=== PATIENT | male | born 1955 | race Caucasian/White ===

== ENCOUNTER 2023-12-02 07:08 | Emergency (ER) | payer OTHER, MEDICAID, SELFPAY ==
[2023-12-02 07:21] VITALS: BP 191/95; PULSE 88; RESP 18; TEMP 37; O2SAT 97; BMI 35.2
[2023-12-02 07:27] LABS: Appearance Urine Slightly Cloudy (Clear); Bilirubin Urine Negative (Negative); Blood Urine 2+ (Negative); Color Urine Light yellow (Yellow); Glucose Urine 3+ (Negative); Ketones Urine Negative (Negative); Leukocyte Esterase Urine 1+ (Negative); Nitrite Urine Positive (Negative); Protein Urine 1+ (Negative); Urobilinogen Urine 0.2 (0.2-1.0); pH Urine 6.5 (5.0-8.5)
[2023-12-02 07:36] LABS: Bacteria Urine Moderate; Squamous Epithelial Cell Urine Few (None-Few); WBC Urine 25-50 (0-5)
[2023-12-02] MEDS: lidocaine HCL 2 % JELLY (TOP) STERILE 6 ML TOPICAL (07:45)
--- NOTE | 2023-12-02 07:50 | ED.GENADULT ---
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 He has had less urine output than normal and he has had burning when he urinates. Apparently was seen in [place] headache catheter placed and removed yesterday. He was not put on antibiotics by his record patient is on blood thinner for paroxysmal atrial fibrillation is got a history of controlled type 2 diabetes he has got pleural fibrosis that is chronic in gout history of alcohol dependence and anxiety. His chart was reviewed from [facility] a he is on apixaban patient also reports he has had a bruise in his right anterior abdomen but does not remember trauma or injury. He has had no fever chills, chills, rigors. He has had difficulty urinating over at least 24 hours. Dysuria as well as mention. No chest pain, shortness of breath, neurologic complaint, skin rashes or nuchal rigidity. Related Data Previous Rx's Medication Instructions Recorded ciprofloxacin HCl 500 mg tablet 500 mg PO BID #14 tabs 12/02/23 (Cipro) Allergies Allergy/AdvReac Type Severity Reaction Status Date / Time No Known Drug Allergies Allergy Verified 12/02/23 07:34 Review of Systems Status of ROS: Reports: 6 or more systems reviewed and unremarkable except as noted in History and below PFSH PFS Social History Smoking Status: Never smoker Do you use any of these nicotine containing products: None How often do you have a drink containing alcohol: never AUDIT-C Alcohol total score: 0 Non-prescribed substance use: denies use service: No Exam Narrative: Exam Narrative: Objective: Vital signs show him to be afebrile, blood pressure is elevated Alert orient x3, pleasant man no distress HEENT is unremarkable neck is supple Chest clear Pulse regular Abdomen obese benign he has got a right-sided bruise over his right upper quadrant, but it is not tender no obvious hematoma. Seems to be more soft tissue just bruising. Looks like it is old as well as its color would indicate it has been few days. No suprapubic tenderness Eggs negative CVA tenderness Extremities are during edema neurologic grossly nonfocal upper lower extremities Const: Vital Signs, click to edit/add: Vital Signs - 24 hr 12/02/23 07:21 12/02/23 09:24 Temperature 98.6 F 98.4 F Pulse Rate [Pulse Oximeter] 88 80 Respiratory Rate 18 18 Blood Pressure [Ri ght Upper Arm] 191/95 H 149/86 H Pulse Oximetry 97 94 Oxygen Delivery Me thod Room Air Room Air Course Vital Signs Vital signs: Initial Vital Signs Temperature 98.6 F 12/02/23 07:21 Temperature Source Temporal Artery Scan 12/02/23 07:21 Pulse Rate 88 12/02/23 07:21 Pulse Rhythm Regular 12/02/23 07:21 Respiratory Rate 18 12/02/23 07:21 Blood Pressure 191/95 H 12/02/23 07:21 Blood Pressure Mean 127 H 12/02/23 07:21 Blood Pressure Position Supine 12/02/23 07:21 Pulse Oximetry 97 12/02/23 07:21 Oxygen Delivery Method Room Air 12/02/23 07:21 Vital Signs Temperature 98.6 F 12/02/23 07:21 Pulse Rate 88 12/02/23 07:21 Respiratory Rate 18 12/02/23 07:21 Blood Pressure 191/95 H 12/02/23 07:21 Pulse Oximetry 97 12/02/23 07:21 Oxygen Delivery Method Room Air 12/02/23 07:21 Temperature 98.4 F 12/02/23 09:24 Pulse Rate 80 12/02/23 09:24 Respiratory Rate 18 12/02/23 09:24 Blood Pressure 149/86 H 12/02/23 09:24 Pulse Oximetry 94 12/02/23 09:24 Oxygen Delivery Method Room Air 12/02/23 09:24 Medications Administered Medications: Discontinued Medications Generic Name Dose Route Start Last Admin Trade Name Freq PRN Reason Stop Dose Admin Sodium Chloride 500 mls @ 500 mls/hr 12/02/23 07:48 12/02/23 09:15 0.9 % Sodium Chloride 500 Ml IV 12/02/23 08:47 Infused .Q1H ONE Infusion Ceftriaxone Sodium 1 gm/ 100 mls @ 200 mls/hr 12/02/23 07:48 12/02/23 09:15 Sodium Chloride IVPB 12/02/23 07:49 Infused ONCE ONE Infusion Lidocaine HCl 6 ml 12/02/23 08:16 12/02/23 07:45 Lidocaine Hcl 2 % Jelly (Top) Sterile TOPICAL 12/02/23 08:17 6 ml ONCE ONE Administration Medical Decision Making MDM Narrative Medical decision making narrative: 67-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 The patient on his urinalysis looks like he has UTI. He will need his catheter replaced as he has 800+ mL of urine in his bladder and he has been unable to urinate. Will leave his catheter in, will give him IV Rocephin and treat him with Cipro at home 500 b.i.d. x7 days. He will need to follow up with primary care in 48 hours for reassessment, return to ED sooner problems concerns worsening. At this point I think he continue his same medications, and I will add the Cipro to his regimen as mention. He will leave with the catheter as well as leg bag. Addendum 8:50 a.m. the patient has urinary tract infection, his catheters in place, he will be discharged home on Cipro, his white count is normal, his electrolytes are still pending, but I think he can go home at this point Cipro and then recheck with regular doctor in a couple of days, decide about further antibiotic treatment and catheter continuation. Patient's blood sugar is elevated, likely due to his infection. I think that will improve once his infection is treated. He can monitor and use his insulin and adjust accordingly. Lab Data Labs: Lab Results 12/02/23 12/02/23 Range/Units 07:21 08:18 WBC 8.24 (4.50-11.00) K/uL RBC 5.24 (4.30-5.90) m/uL Hgb 14.8 (13.5-17.5) gm/dL Hct 43.4 (37.0-53.0) % MCV 83 (80-100) fL MCH 28 (26-34) pg MCHC 34 (32-36) gm/dL RDW Coeff of Maria [place] 13.1 (11.5-15.5) % Plt Count 209 (140-440) K/uL Neut % (Auto) 79.2 H (42.0-72.0) % Lymph % (Auto) 11.9 L (20-44) % [place] % (Auto) 6.3 (0.0-11.0) % Eos % (Auto) 1.7 (0.0-7.0) % Baso % (Auto) 0.5 (0.0-3.0) % Neut # (Auto) 6.50 (1.7-7.0) K/uL Lymph # (Auto) 1.00 (0.90-2.90) K/uL [place] # (Auto) 0.50 (0.00-0.90) K/UL Eos # (Auto) 0.14 (0.00-0.50) K/uL Baso # (Auto) 0.04 (0.00-0.30) K/uL Abs Immat Gran (auto) 0.03 (0.00-0.30) K/uL Imm/Tot Granulo (auto) 0.4 % Sodium 135 (135-149) mmol/L Potassium 4.3 (3.6-5.1) mmol/L Chloride 100 (96-114) mmol/L Carbon Dioxide 25 (20-32) mmol/L Anion Gap 10 (7-15) mEq/L BUN 15 (7-30) mg/dL Creatinine 0.6 (0.5-1.5) mg/dL Estimated Creat Clear 62.91 Estimated GFR 104 ml/min Glucose 321 H (60-115) mg/dL Calcium 9.4 (8.4-10.6) mg/dL C-Reactive Protein 2.9 H (0.5-1.0) mg/dL Urine Color Light yellow (Yellow) Urine Appearance Slightly Cloudy A (Clear) Urine pH 6.5 (5.0-8.5) Ur Specific [place] 1.010 (1.000-1.030) Urine Protein 1+ A (Negative) Urine Glucose (UA) 3+ A (Negative) Urine Ketones Negative (Negative) Urine Blood 2+ A (Negative) Urine Nitrite Positive A (Negative) Urine Bilirubin Negative (Negative) Urine Urobilinogen 0.2 (0.2-1.0) Ur Leukocyte Esterase 1+ A (Negative) Urine RBC 10-25 A (0-2) Urine WBC 25-50 A (0-5) Ur Squamous Epith Cells Few (None-Few) Urine Bacteria Moderate A (None) Discharge Plan Discharge Clinical Impression: Urinary tract infection, Acute urinary retention Patient Disposition: Home w/ Parent or Adult Condition: Improved Additional Instructions: Leave catheter in for the next 2 days, recommend recheck with your regular doctor in 2-3 days. They can reassess the need for continued catheter. Antibiotics will be given to you for an infection in your urine. Continue home medications, return to the ED if there is problems or concerns. Deje el cat?ter colocado faith los pr?ximos 2 d?as. Se recomienda volver a consultar con marrufo m?dico habitual en 2-3 d?as. Pueden reevaluar la necesidad de continuar con el cat?ter. Le ally?n antibi?ticos por juan infecci?n en la orina. Contin?e con los medicamentos en el hogar y regrese al servicio de urgencias si hay problemas urgentes. Activity Level: Light activity Discharge Diet: Diabetic Prescriptions: New ciprofloxacin HCl [Cipro] 500 mg tablet 500 mg PO BID Qty: 14 0RF Stand Alone Forms: OrderUp Info Instructions
[2023-12-02] MEDS: 0.9 % SODIUM CHLORIDE 500 ML 500 ML IV (08:27)
[2023-12-02 08:33] LABS: Basophils Absolute Auto 0.04 K/uL (0.00-0.30); Basophils Percent Auto 0.5 % (0.0-3.0); Eosinophils Absolute Auto 0.14 K/uL (0.00-0.50); Eosinophils Percent Auto 1.7 % (0.0-7.0); Hematocrit 43.4 % (37.0-53.0); Hemoglobin* 14.8 gm/dL (13.5-17.5); Immature Granulocytes Abs Auto 0.03 K/uL (0.00-0.30); Immature Granulocytes Pct Auto 0.4 %; Lymphocytes Percent Auto 11.9 % (20-44); Mean Corpuscular HGB Conc 34 gm/dL (32-36); Mean Corpuscular Hemoglobin 28 pg (26-34); Mean Corpuscular Volume 83 fL (80-100); Monocytes Percent Auto 6.3 % (0.0-11.0); Neutrophils Percent Auto 79.2 % (42.0-72.0); Platelet Count* 209 K/uL (140-440); RDW Coefficient of Variation % 13.1 % (11.5-15.5); Red Blood Count 5.24 m/uL (4.30-5.90); White Blood Count* 8.24 K/uL (4.50-11.00)
[2023-12-02 08:34] LABS: Slide Review Reflex No
[2023-12-02] MEDS: cefTRIAXone 1 GM in 0.9 % SODIUM CHLORIDE Mini-bag 100 ML IVPB (08:34)
[2023-12-02 09:09] LABS: Chloride* 100 mmol/L (96-114)
[2023-12-02 09:10] LABS: Potassium* 4.3 mmol/L (3.6-5.1); Sodium* 135 mmol/L (135-149)
[2023-12-02 09:12] LABS: Creatinine* 0.6 mg/dL (0.5-1.5); Est. Creatinine Clearance* 62.91; Estimated Glomerular Filt Rate 104 ml/min
[2023-12-02 09:13] LABS: Anion Gap 10 mEq/L (7-15); Blood Urea Nitrogen* 15 mg/dL (7-30); Calcium* 9.4 mg/dL (8.4-10.6); Carbon Dioxide* 25 mmol/L (20-32); Glucose* 321 mg/dL (60-115)
[2023-12-02 09:16] LABS: C Reactive Protein* 2.9 mg/dL (0.5-1.0)
[2023-12-02 09:24] VITALS: BP 149/86; PULSE 80; RESP 18; TEMP 36.9; O2SAT 94
== END 2023-12-02 10:20 | disposition home or self-care (01) ==
PROVIDERS: Emergency Provider Family Medicine
DX: R31.9 Hematuria, unspecified (principal); N39.0 Urinary tract infection, site not specified; Z79.01 Long term (current) use of anticoagulants
CPT/HCPCS: 36415; 51798; 80048; 81001; 85025; 86140; 87086; 96365; 99284; J0696; J7030

== ENCOUNTER 2023-12-11 19:20 | Emergency (ER) | payer OTHER, MEDICAID, SELFPAY ==
[2023-12-11 19:29] VITALS: BP 162/81; PULSE 107; RESP 16; TEMP 36.6; O2SAT 95; BMI 34.3
--- OUTSIDE RECORDS SUMMARY | 2023-12-11 20:11 | XMS_ITS | Referral Summary ---
Author Organization [facility] Address [address] [place] [address] Care Team Providers Care Hospice Nurse Name Role Phone Elsewhere, Pcp Primary Care Provider Unavailabl e Source Comments Patient records contain information from all sites at [facility]. For routine questions regarding patient records, call [phone] during business hours, M-F 8:00 AM - 5:00 PM Central Time. Record requests for emergency care only can be directed to [phone] at any time.[facility] Allergies No known active allergies Medications Medication Sig Dispensed Refills Start Date End Date Status nebulizer accessories kit Nebulizer, disposable neb kit x 4, reuseable neb kit x 1, mask x 1, filters x 1. Frequency of use: daily; Medication: Duoneb Length of need: 120 months 04/12/2018 Active albuterol (PROVENTIL HFA,VENTOLIN HFA) 90 mcg/actuation inhaler Inhale 2 puffs every 6 (six) hours as needed for wheezing or shortness of breath. Active lancets daily. 90 each 05/21/2018 Active alcohol swabs pads, medicated Use as needed for diabetes control 1500 each 3 05/21/2018 Active blood sugar diagnostic strips 1 test daily. 90 test 05/21/2018 Active blood-glucose meter misc Test as directed for diabetes control. 1 each 05/21/2018 Active blood glucose ctl high,nml,low solution Glucose control solution provides an easy way to ensure accurate blood glucose testing. 1 each 05/21/2018 Active CONTOUR NEXT LEV 1 CONTROL CHRISTOPH solution See Admin Instructions. 0 05/22/2018 Active miscellaneous medical supply (BLOOD PRESSURE CUFF) misc One sphygmomanometer, 1 unit; use as directed 1 each 08/22/2018 Active Eliquis 5 mg tablet Take 5 mg by mouth 2 (two) times a day. 12/29/2021 Active tamsulosin (FLOMAX) 0.4 mg 24 hr capsule Take 1 capsule (0.4 mg total) by mouth daily. 90 capsule 3 03/01/2022 Active amLODIPine (NORVASC) 10 mg tablet Take 10 mg by mouth daily. 10/06/2022 Active ipratropium (ATROVENT) 0.02 % nebulizer solution Inhale 0.5 mg by nebulization 4 (four) times a day as needed for wheezing or shortness of breath. Active fluticasone-umecli dinium-vilanterol (Trelegy Ellipta) 100-62.5-25 mcg/actuation inhaler Inhale 1 puff once daily. Active ibuprofen (MOTRIN) 600 mg tablet Take 600 mg by mouth every 6 (six) hours as needed for pain. Active furosemide (LASIX) 40 mg tablet Take 1 tablet (40 mg total) by mouth 2 (two) times a day. If more than 5 lbs weight gain in 3 days, take additional dose. 180 tablet 12/18/2022 Active atorvastatin (LIPITOR) 40 mg tablet Take 1 tablet (40 mg total) by mouth at bedtime. 90 tablet 12/18/2022 Active lisinopriL (PRINIVIL,ZESTRIL) 10 mg tablet Take 1 tablet (10 mg total) by mouth daily. 30 tablet 12/19/2022 Active metFORMIN XR (GLUCOPHAGE-XR) 500 mg 24 hr tablet Take 2 tablets (1,000 mg total) by mouth 2 (two) times a day with meals. 180 tablet 12/18/2022 Active metoprolol tartrate (LOPRESSOR) 25 mg tablet Take 1 tablet (25 mg total) by mouth 2 (two) times a day. 120 tablet 12/18/2022 Active Active Problems Problem Noted Date Diagnosed Date Shortness Of Breath 12/14/2022 Benign Prostatic Hyperplasia Hypertrophy With Ob struction 01/21/2022 Elevated Prostate-Specific Antigen 01/21/2022 Acute On Chronic Diastolic (Congestive) Heart Fa ilure 05/20/2018 Anticoagulant Therapy [Z79.01] 04/19/2018 Monitoring For Therapeutic Drug Therapy [Z51.81] 04/19/2018 Tubular Adenoma Colon Personal History 7 Depressive Disorder 01/28/2016 Overview: Depression NOS Overactive Bladder 12/08/2015 Obstructive Sleep Apnea Adult 04/07/2015 Nevus Benign 10/04/2014 Acrochordon 10/04/2014 Overview: Diagnosis Maintenance Updates Chronic Obstructive Pulmonary Disease Severe 08/2014 Overview: He has been stable. Last Assessment & Plan: Continue current medications. 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 Persistent Atrial Fibrillation 02/01/2014 Obesity Body Mass Index 30-39.9 Adult 08/30/2013 Dependence Alcohol 01/11/2012 Overview: This is in remission according to his report. Hyperlipidemia 10/04/2011 Diabetes Mellitus Type 2 Hyperglycemia 0 Overview: A1c is improving. Last Assessment & Plan: Increase metformin from 500 b.i.d. to 1000 mg b.i.d.. Recheck A1c in 3 months or Hypertensive Heart And Chron ic Kidney Disease Without Heart Failure And With Stage 1 Chronic Kidney Disease 01/23/2009 Last Assessment & Plan: Had back spironolactone 25 mg once daily. Continue to monitor potassium and creatinine. Anxiety 08/01/2008 Resolved Problems Problem Noted Date Diagnosed Date Resolved Date Other Chest Pain 04/14/2018 05/20/2018 Diabetes Mellitus Type 2 Wit h Other Circulatory Complication 11/02/2016 05/09/2017 Overview: DM2 Circulatory Disease Immunizations Name Administration Dates Next Due Influenza (IM) Preservative Free 04/22/2009 Influenza Split 08/18/2013 Influenza, Quadrivalent, Adj uvanted, Preservative Free 07/16/2021,04/23/2020 Influenza, Unspecified 04/14/2015,2013,04/17/2012,2009 PPSV23 04/23/2020,05/13/2009 Td Preservative Free (TENIVA C, DECAVAC) 04/05/2005 Tdap 10/18/2014 influenza vaccine quad (FLUZONE/FLUARIX) (6 months and older)(PF) 04/18/2018 Social History Tobacco Use Types Packs/Day Years Used Date Smoking Tobacco: Former Smokeless Tobacco: Never Tobacco Cessation:Counseling Given: Not Answered Alcohol Use Standard Drinks/Week Comments Not Currently 3 (1 standard drink = 0.6 oz pur e alcohol) PHQ-2 Answer Date Recorded PHQ-2 Score 0 12/19/2018 Nutrition Answer Date Recorded Nutrition: EVOO Fat Source Unknown 09/16 Nutrition: Servings of Fruits/Vegetables per Day Not on file 09/16/2020 Dental Answer Date Recorded Dental: Regular Dentist Unknown 09/17/19 21 Sex and Gender Information Value Date Recorded Sex Assigned at Not on file Gender Identity Not on file Sexual Orientation Not on file Last Filed Vital Signs Vital Sign Reading Time Taken Comments Blood Pressure 124/62 12/18/2022 11:26 AM CDT Pulse 63 12/18/2022 11:26 AM CDT Temperature 36.8 ??C (98.2 ??F) 12/18/2022 11:26 AM C DT Respiratory Rate 19 12/18/2022 11:26 AM CDT Oxygen Saturation 95% 12/18/2022 11:26 AM CDT Inhaled Oxygen Concentration - - Weight 95.8 kg (211 lb 3.2 oz) 12/17/2022 6:20 A M CDT Height 165.1 cm (5' 5) 12/14/2022 11:30 AM CDT Body Mass Index 35.15 12/14/2022 11:30 AM CDT Plan of Treatment Upcoming Encounters Date Type Department Care Team (Late st Contact Info) Description 01/16/2024 8:30 AM CDT Comprehensive Visit Department of Urology in [place], [place] [address] [place] [id number] Jessica Bradley, YUNI, C.N.P. [address] [place] [address] [phone] (work) Procedures Procedure Name Priority Date/Time Associated Diagnosis Comments EXTI BASIC METABOLIC PANEL, S/P Routine 02/21/2023 7:40 AM CDT LIPID PANEL, S Timed 12/14/2022 3:10 PM CDT ALBUMIN, RANDOM, U Routine 12/05/2018 9: 01 AM CDT Diabetes Mellitus Type 2 (HCC) HEMOGLOBIN A1C, B Routine 12/05/2018 9:0 1 AM CDT Diabetes Mellitus Type 2 (HCC) CT ABDOMEN PELVIS WITH IV CONTRAST RAD - Routine (most inpatients and all outpatients) 10/18/2016 10:30 PM CDT OPHTHALMOLOGY IMAGE EXAM Routine 10/27/2011 12:00 AM CDT from Last 3 Months or Most Recently Relevant to Health Maintenance Results * (ABNORMAL) Lipid Panel (12/14/2022 3:10 PM CDT) Triglycerides 111 mg/dL 12/14/2022 4:32 PM CDT DTL Comment: ----REFERENCE VALUE---- Normal: <150 mg/dL Borderline High: 150-199 mg/dL High: 200-499 mg/dL Very High: > or =500 mg/dL Cholesterol, Total 155 mg/dL 2022 4:32 PM CDT DTL Comment: ----REFERENCE VALUE---- Desirable: < 200 mg/dL Borderline High: 200 - 239 mg/dL High: > or = 240 mg/dL Cholesterol, LDL, Calculated 103 mg/dL 12/14/2022 4:32 PM CDT DTL Comment: ----REFERENCE VALUE---- Desirable: <100 mg/dL Above Desirable: 100-129 mg/dL Borderline High: 130-159 mg/dL High: 160-189 mg/dL Very High: >=190 mg/dL ----ADDITIONAL INFORMATION---- LDL cholesterol calculated using the Patricia/NIH equation. Cholesterol, HDL, S 32(L) >=40 mg/dL 12/14/2022 4:32 PM CDT DTL Cholesterol, Non-HDL, Calculated 123 mg/dL 12/14/2022 4:32 PM CDT DTL Comment: ----REFERENCE VALUE---- Desirable: <130 mg/dL Above Desirable: 130-159 mg/dL Borderline High: 160-189 mg/dL High: 190-219 mg/dL Very High: > or =220 mg/dL Fasting (8 HR or more) Unknown 12/14/2022 4:12 PM CDT DTL Blood (Blood, Venous) 12/14/2022 3:10 PM CDT 12/14/2022 4:12 PM CDT Matty Higginbotham M.D., Ph.D. LAB BLOOD ADD- ON Performing Organization Address City/[facility]/ZIP Co de Phone Number [facility] [address] [place] [address], [facility] [place] [address] * (ABNORMAL) Microalbumin, Random, Urine (12/05/2018 9:01 AM CDT) Microalbumin <7.0 mg/L 12/05/2018 11:18 AM CDT [facility] Creatinine 17 mg/dL 12/05/2018 11:18 AM CDT [facility] Albumin/Creatinine Ratio <41(H) <17 mg/g 12/05/2018 11:18 AM CDT [facility] Comment: This ratio may not correspond with the reference range because one or both of the values used to calculate the ratio was above or below the quantification limits. Urine (Urine, Clean Catch) 12/05/2018 9:01 AM CDT 12/05/2018 10:35 AM CDT Pamela Cabral M.D. LAB URIN E ORDERABLES Performing Organization Address City/[facility]/ZIP Co de Phone Number [facility] [address], [place] [address] * (ABNORMAL) Hemoglobin A1c (12/05/2018 9:01 AM CDT) Hemoglobin A1c, B 6.9(H) 4.2 - 5.6 % 12/05/2018 10:49 AM CDT [facility] Comment: Hemoglobin A1c values greater than or equal to 6.5 percent are diagnostic for diabetes mellitus. ??Diagnosis should be confirmed by repeat testing. ??In diabetic patients, HbA1c goals should be discussed with healthcare provider. Blood (Blood, Venous) 12/05/2018 9:01 AM CDT 12/05/2018 10:35 AM CDT Pamela Cabral M.D. LAB BLOO D ADD-ON [facility] [address] [place] [address], [facility] * OPHTHALMOLOGY IMAGE EXAM (10/27/2011 12:00 AM CDT) Anatomical Region Laterality Modality Other 10/27/2011 Addenda Addendum by ProviderJasmin M.D. on 10/27/2011 12:00 AM CDT OPH^^^OW Eye OCT RNFL 10/27/2011 00:00:00 Historical Provider IMG NON RAD IMAGING PROCEDURES from Last 3 Months or Most Recently Relevant to Health Maintenance Advance Directives For more information, please contact: [phone] * Full Code (Latest Code Status on File) Date Activated Date Inactivated Comments 12/14/2022 11:44 AM 12/18/2022 2:54 PM Question Answer Comments Full Code: Not Discussed Due to: Patient not available * Full Code Date Activated Date Inactivated Comments 05/21/2018 1:48 AM 05/23/2018 4:43 PM Question Answer Comments Full Code: Discussed Care Teams Hospice Nurse Relationship Specialty Start Date End Date Elsewhere, Pcp PCP - General Family Medicine 04/02/20
--- OUTSIDE RECORDS SUMMARY | 2023-12-11 20:11 | XMS_ITS | Clinical Summary ---
Author Organization [facility] Address [address] [place] [address] Care Team Providers Care 5Th Grade Teacher Name Role Phone Elsewhere, Pcp Primary Care Provider Unavailabl e Source Comments Patient records contain information from all sites at [facility]. For routine questions regarding patient records, call [phone] during business hours, M-F 8:00 AM - 5:00 PM Central Time. Record requests for emergency care only can be directed to [phone] at any time.[facility] Allergies No known active allergies Medications [...] quad (FLUZONE/FLUARIX) (6 months and older)(PF) 04/18/2018 Family History Medical History Relation Name Comments Alcohol abuse Brother 1 pravin COPD Brother 1 pravin Osteoarthritis Brother 2 sola Heart attack Father Cancer Mother Relation Name Status Comments Brother 1 pravin Brother 2 sola Father Mother Social History Tobacco Use Types Packs/Day Years [...] CDT Comprehensive Visit Department of Urology in [address] [phone] Jessica Bradley APRN, C.N.P. [address] [phone] Health Maintenance Due Date Last Done Comments CT Colonography 1955 Cologuard 1955 Depression Monitoring (PHQ-9) 1955 Hepatitis C Screening 1955 Office Visit for Blood Press ure Check / Re-check 1955 Zoster Vaccines (1 of 2) 12/12/2003 Diabetic Office Visit with F oot Exam 10/26/2016 10/27/2015 Diabetes Education 12/29/2016 10/27/2015 Hemoglobin A1C 06/07/2019 12/05/2018, 06/18, 05/21/2018, Additional history exists Urine Albumin 12/06/2019 12/05/2018, 03/19, 09/01/2016, Additional history exists Colonoscopy 10/19/2020 10/20/2015, 10/2015, 12/16/2012 (Performed elsewhere) Colorectal Cancer Surveillance 10/19/2020 Fall Risk Screen (Annual) 07/18/2023 Dilated Eye Exam 10/27/2023 10/26/2022, , 08/14/2015, Additional history exists COVID-19 Vaccine (2022-2 4 season) 2023 08/24/2023, 01/03/2023, 04/08/2022, Additional history exists Creatinine Level (Kidney Fun ction Test) 02/22/2024 02/21/2023, 01/03/2023, 12/20/2022, Additional history exists Potassium Level 02/22/2024 02/21/2023, 12/16, 12/20/2022, Additional history exists Sodium Level 02/22/2024 02/21/2023, 11/2022, 12/18/2022, Additional history exists DTaP,Tdap,and Td Vaccines (2 - Td or Tdap) 10/18/2024 10/18/2014, 04/05/2005 Lipid (Cholesterol) Screening 12/15/2027, 04/23/2020, 05/21/2018, Additional history exists Abdominal Aortic Aneurysm (A AA) Screen Completed 10/18/2016 Pneumococcal vaccine (65+ years) Completed 04/08/2022, 04/23/2020, 05/13/2009 Influenza Vaccine Completed 08/24/2023, , 07/16/2021, Additional history exists Procedures Procedure Name Priority Date/Time Associated Diagnosis [...] (ABNORMAL) Lipid Panel (12/14/2022 3:10 PM CDT) [facility] Triglycerides 111 mg/dL 12/14/2022 4:32 PM CDT [...] Higginbotham M.D., Ph.D. LAB BLOOD ADD- ON [facility] [address] [place] [address], [facility] [address] [place] [address] * (ABNORMAL) Microalbumin, Random, Urine (12/05/2018 9:01 AM CDT) Microalbumin <7.0 mg/L 12/05/2018 11:18 AM CDT [facility] Creatinine 17 mg/dL 12/05/2018 11:[address] [facility] Albumin/Creatinine Ratio <41(H) <17 mg/g 12/05/2018 11:18 AM CDT [facility] Comment: This ratio may not correspond with the reference range because one or both of the values used to calculate the ratio was above or below the quantification limits. Urine (Urine, Clean Catch) 12/05/2018 9:01 AM CDT 12/05/2018 10:35 AM CDT Pamela Cabral M.D. LAB URIN E ORDERABLES Performing Organization Address [facility] [[email or web address]] Co de Phone Number [facility] [address] * (ABNORMAL) Hemoglobin A1c (12/05/2018 9:01 AM CDT) Hemoglobin A1c, B 6.9(H) 4.2 - 5.6 % 12/05/2018 10:49 AM CDT [facility] Comment: Hemoglobin A1c values greater than or equal to 6.5 percent are diagnostic for diabetes mellitus. ??Diagnosis should be confirmed by repeat testing. ??In diabetic patients, HbA1c goals should be discussed with healthcare provider. Blood (Blood, Venous) 12/05/2018 9:01 AM CDT 12/05/2018 10:35 AM CDT Pamela Cabral M.D. LAB BLOO D ADD-ON Performing Organization Address [facility] [[email or web address]] Co de Phone Number [facility] [address] [place] [address] * OPHTHALMOLOGY IMAGE EXAM (10/27/2011 12:00 AM CDT) Anatomical Region Laterality Modality Other 10/27/2011 Addenda Addendum by ProviderJasmin M.D. on 10/27/2011 12:00 AM CDT OPH^^^OW Eye OCT RNFL 10/27/2011 00:00:00 Historical Provider IMG NON RAD IMAGING PROCEDURES from Last 3 Months or Most Recently Relevant to Health Maintenance Advance Directives For more information, please contact: [phone] * Full Code (Latest Code Status on File) Date Activated Date Inactivated Comments 12/14/2022 11:44 AM 12/18/2022 2:54 PM Question Answer Comments Full Code: Not Discussed Due to: Patient not available * Full Code Date Activated Date Inactivated Comments 05/21/2018 1:48 AM 05/23/2018 4:43 PM Question Answer Comments Full Code: Discussed Care Teams 5Th Grade Teacher Relationship Specialty Start Date End Date Elsewhere, Pcp PCP - General Family Medicine 04/02/20
--- OUTSIDE RECORDS SUMMARY | 2023-12-11 20:11 | XMS_ITS ---
Author Organization [facility] Address [address] [place] [address] Care Team Providers Care Drivers' Cash Clerk Name Role Phone Unavailable Unavailable Unavailable Surgery Details Not on file Complications Check Surgery Details section. Procedure Estimated Blood Loss Check Surgery Details section. Procedure Findings Check Surgery Details section. Procedure Specimens Taken Check Surgery Details section.
--- OUTSIDE RECORDS SUMMARY | 2023-12-11 20:11 | XMS_ITS | Encounter Summary ---
Author Organization [facility] Address [address] [place] [address] Care Team Providers Care Sales And Retail Management Recruiter Name Role Phone Elsewhere, Pcp Primary Care Provider Unavailabl e Encounter Details Date Type Department Care Team (Late st Contact Info) Description 09/02/2014 Historical Ophthalmology [facility] Lakhwinder Ku Jr., M.D. [address] [place] [phone] Social History Tobacco Use Types Packs/Day Years Used Date Smoking Tobacco: Never Assessed Sex and Gender Information Value Date Recorded Sex Assigned at Not on file Gender Identity Not on file Sexual Orientation Not on file documented as of this encounter Progress Notes * Lakhwinder Ku M.D. - 09/02/2014 2:26 PM CST Eye General CHIEF COMPLAINT diabetic eye exam HISTORY OF PRESENT ILLNESS Pt here to get eyes checked Not able to see well in the distance BS running high Last A1C 13.3 08/01 IMPRESSION / REPORT / PLAN A) DM, but no TELEVISION HOST or PDR. P) RTo 1 year, new MR CDM Reports - EYEGEN Id: [id number] Status: Fnl documented in this encounter Plan of Treatment Upcoming Encounters Date Type Department Care Team (Late st Contact Info) Description 01/16/2024 8:30 AM CDT Comprehensive Visit Department of Urology in [place] [address] [place] [phone] Jessica Bradley APRN, C.N.P. [address] [phone] documented as of this encounter Visit Diagnoses Not on filedocumented in this encounter Additional Health Concerns Infection Onset Date Last Indicated Resolved Time COVID19 Pending 12/14/2022 12/14/2022 12/14/2022 9 :28 AM CDT documented as of this encounter Care Teams Sales And Retail Management Recruiter Relationship Specialty Start Date End Date Elsewhere, Pcp PCP - General Family Medicine 04/02/20 documented as of this encounter
--- NOTE | 2023-12-11 20:14 | ED_ITS ---
HPI - Male Genitourinary General Date Seen: 12/11/23 Chief complaint: Urogenital Problems, Male Stated complaint: blood in urine catheter bag Time Seen by Provider: 12/11/23 19:35 Source: patient and family Mode of arrival: ambulatory Limitations: no limitations History of Present Illness HPI Narrative: She is a 67-year-old gentleman who presents here for evaluation of hematuria he had a catheter placed 2 days ago. This was done in the setting of urinary retention. He also was found to have a UTI is been on Cipro he is on chronic anticoagulation. In takes Eliquis. Today he noted that his urine was the color of Tobi-Aid. Is here for an assessment he denies any syncope presyncope dizziness palpitations, he has no history of previous anemia. He denies any abdominal pain fevers chills or other issues channel development manager is his family member was here. Related Data Home Medications ?Medication ?Instructions ?Recorded ?Confirmed apixaban 5 mg tablet (Eliquis) 5 mg PO BID 12/11/23 12/11/23 atorvastatin 40 mg tablet 40 mg PO QPM 12/11/23 12/11/23 furosemide 20 mg tablet mg PO 12/11/23 glimepiride 4 mg tablet 4 mg PO DAILY 12/11/23 12/11/23 lisinopril 10 mg tablet 10 mg PO DAILY 12/11/23 12/11/23 metoprolol tartrate 25 mg tablet mg PO 12/11/23 semaglutide 3 mg tablet (Rybelsus) 3 mg PO DAILY 12/11/23 12/11/23 tamsulosin 0.4 mg capsule 0.4 mg PO DAILY 12/11/23 12/11/23 Allergies Allergy/AdvReac Type Severity Reaction Status Date / Time No Known Drug Allergies Allergy Verified 12/02/23 07:34 Review of Systems Status of ROS: Reports: 6 or more systems reviewed and unremarkable except as noted in History and below PFSH PFSH Social History Smoking Status: Never smoker Do you use any of these nicotine containing products: None How often do you have a drink containing alcohol: never AUDIT-C Alcohol total score: 0 Non-prescribed substance use: denies use service: No Exam Narrative: Exam Narrative: Patient is seen in room 4 he is in no apparent distress, obese abdomen, no tenderness, he scanned using the ultrasound, he has no evidence of any residual. There is no blood around the tip of the penis in the catheter. And the catheter is draining Tobi-Aid colored urine. Const: Vital Signs, click to edit/add: Vital Signs - 24 hr 12/11/23 19:29 Temperature 97.8 F Pulse Rate [Pulse Oximeter] 107 H Respiratory Rate 16 Blood Pressure [Ri ght Upper Arm] 162/81 H Pulse Oximetry 95 Oxygen Delivery Me thod Room Air Documenting provider has reviewed patient's vital signs: yes Course Vital Signs Vital signs: Initial Vital Signs Temperature 97.8 F 12/11/23 19:29 Temperature Source Temporal Artery Scan 12/11/23 19:29 Pulse Rate 107 H 12/11/23 19:29 Respiratory Rate 16 12/11/23 19:29 Blood Pressure 162/81 H 12/11/23 19:29 Blood Pressure Mean 108 H 12/11/23 19:29 Blood Pressure Position Sitting 12/11/23 19:29 Pulse Oximetry 95 12/11/23 19:29 Oxygen Delivery Method Room Air 12/11/23 19:29 Vital Signs Temperature 97.8 F 12/11/23 19:29 Pulse Rate 107 H 12/11/23 19:29 Respiratory Rate 16 12/11/23 19:29 Blood Pressure 162/81 H 12/11/23 19:29 Pulse Oximetry 95 12/11/23 19:29 Oxygen Delivery Method Room Air 12/11/23 19:29 Temperature 97.8 F 12/11/23 19:29 Pulse Rate 107 H 12/11/23 19:29 Respiratory Rate 16 12/11/23 19:29 Blood Pressure 162/81 H 12/11/23 19:29 Pulse Oximetry 95 12/11/23 19:29 Oxygen Delivery Method Room Air 12/11/23 19:29 MDM - Male Genitourinary MDM Narrative Medical decision making narrative: Differential diagnosis includes but is not limited to nephritic syndrome, urogenital malignancy, pyelonephritis, kidney stone, urethritis, here general trauma, UTI, and strep to coccus pharyngitis. This includes the possible complication of pyelonephritis progressing to sepsis. Life-threatening complications thus Medical Records Attestation: I reviewed the patient's medical records. Lab Data Attestation: I reviewed the patient's lab results. Discharge Plan Discharge Clinical Impression: Urinary tract infection, Hematuria, Chronic anticoagulation, Acute urinary retention Patient Disposition: Home w/ Parent or Adult Condition: Stable Instructions: Urinary Retention in Men (ED), Hematuria (ED), Safe Use of Anticoagulants (ED) Additional Instructions: Home rest continue use of lots of fluids, continuing her medications, likely is a little bit of trauma, causing the bleeding, but there is no evidence of any severe issues. I would continue to watch this and re-presented here if the catheter plugs, or other issue Activity Level: Light activity Prescriptions: No Action atorvastatin 40 mg tablet 40 mg PO QPM tamsulosin 0.4 mg capsule 0.4 mg PO DAILY lisinopril 10 mg tablet 10 mg PO DAILY glimepiride 4 mg tablet 4 mg PO DAILY furosemide 20 mg tablet PO metoprolol tartrate 25 mg tablet PO Eliquis 5 mg tablet 5 mg PO BID Rybelsus 3 mg tablet 3 mg PO DAILY Follow Up/Referrals: Provider,Not a Local [Referring] - Stand Alone Forms: [employer] Info Instructions
== END 2023-12-11 20:18 | disposition home or self-care (01) ==
LOC: ED 20:09
PROVIDERS: Emergency Provider Family Medicine; PCP Family Medicine
DX: N39.0 Urinary tract infection, site not specified (principal); R31.9 Hematuria, unspecified; R33.9 Retention of urine, unspecified; Z79.01 Long term (current) use of anticoagulants
CPT/HCPCS: 51798; 99283